=== PATIENT | male | born 1950 | race African-American/Black ===

== ENCOUNTER → 2017-07-17 | Outpatient (CLI) | payer OTHER ==
[~2017-07-17] MED LIST: CEFUROXIME250 MG PO; CEFUROXIME500 MG PO; DITROPAN XL10 MG PO; DITROPAN XL5 MG PO; FLOMAX0.4 MG PO; PYRIDIUM100 MG PO; TYLENOL WITH C1 EACH PO; ULTRAM50 MG PO
== END ==
LOC: US 10:23
PROVIDERS: ATTEND Urology
DX: N45.1 Epididymitis (principal)

== ENCOUNTER 2018-02-23 17:00 | Observation (INO) | payer OTHER ==
[~2018-02-23] VITALS: Ht 170.2 cm; Wt 95.3 kg
[2018-02-23] MEDS ORDERED: ASPIRIN 81 MG CHEW TAB PO ONE ×2 (17:15→20:00)
[2018-02-23 17:35] LABS: BASOPHILS % 0.5 % (0.0-1.0); EOSINOPHILS # (AUTO) 0.1 (0.0-0.4); HEMATOCRIT 41.6 % (38.2-49.6); LYMPHOCYTES # (AUTO) 1.7 (1.0-3.2); LYMPHOCYTES % 27.9 % (18.0-39.1); MEAN CORPUSCULAR HEMOGLOBIN 27.1 pg (28-32); MEAN CORPUSCULAR HGB CONC 31.3 g/dL (31-35); MEAN CORPUSCULAR VOLUME 86.8 fL (81-99); MONOCYTES # (AUTO) 0.6 (0.2-0.8); MONOCYTES % 9.6 % (4.4-11.3); NEUTROPHILS # (AUTO) 3.8 (2.1-6.9); NEUTROPHILS % 60.8 % (38.7-80.0); PLATELET COUNT 218 x10e3/uL (140-360); RED BLOOD COUNT 4.79 x10e6/uL (4.3-5.7)
[2018-02-23 18:01] LABS: ALBUMIN 3.8 g/dL (3.5-5.0); ALBUMIN/GLOBULIN RATIO 0.9 (0.8-2.0); ANION GAP 15.6 mmol/L (8-16); CALCIUM 8.7 mg/dL (8.4-10.2); CREATININE, SERUM 1.58 mg/dL (0.72-1.25); INR 1.01; POTASSIUM 4.6 mmol/L (3.5-5.1); PROTHROMBIN TIME 12.5 seconds (11.9-14.5)
[2018-02-23 18:02] LABS: PARTIAL THROMBOPLASTIN TIME 24.8 seconds (23.8-35.5)
[2018-02-23 18:08] LABS: BILIRUBIN,URINE NEGATIVE (NEGATIVE); CLARITY,URINE CLEAR (CLEAR); COLOR,URINE YELLOW (YELLOW); CREATINE KINASE MB 2.8 ng/mL (0-5.0); KETONES,URINE NEGATIVE (NEGATIVE); LEUKOCYTE ESTERASE ,URINE NEGATIVE (NEGATIVE); NITRITE,URINE NEGATIVE (NEGATIVE); PROTEIN,URINE DIPSTICK TRACE (NEGATIVE); URINE UROBILINOGEN 0.2 mg/dL (0.2 - 1)
[2018-02-23 18:21] LABS: EPITHELIAL CELLS,URINE MODERATE /LPF
[2018-02-23 18:22] LABS: RBC,URINE 0-5 /HPF (0-5)
--- NOTE | 2018-02-23 19:36 | Diagnostic Imaging Report ---
RIGHT ELBOW X-RAY - 3 VIEWS HISTORY: \S\ERMD ORDER \S\[id number] \S\1836 \S\Y COMPARISON: None available. FINDINGS: Bones: No acute displaced fracture. Osseous alignment is within normal limits. Joints: The joint spaces are well-maintained. Soft tissues: The soft tissues appear unremarkable. IMPRESSION: No acute radiographic abnormality. Signed by: Dr. Mariella Berry M.D. on 02/23/2018 7:22 PM
--- NOTE | 2018-02-23 19:36 | Diagnostic Imaging Report ---
History:Syncope, fall Comparison studies: None Technique: Axial images were obtained from the skull base to the vertex. Coronal and sagittal images reconstructed from the axial data. Dose modulation, iterative reconstruction, and/or weight based adjustment of the mA/kV was utilized to reduce the radiation dose to as low as reasonably achievable. Intravenous contrast: None Findings: Scalp/skull: No abnormalities. Extra-axial spaces: No masses. No fluid collections. Brain sulci: Mildly prominent but appropriate for age Ventricles: Normal in size and configuration adequate for age. No hydrocephalus. Parenchyma: No abnormal densities. No masses, hemorrhage, acute or chronic cortical vascular insults. Sellar/suprasellar region: No abnormalities. Craniocervical junction: Patent foramen magnum. No Chiari one malformation. Incidental findings: Subtle atherosclerotic calcifications in the carotid siphons . Impression: No acute abnormalities. Signed by: Dr. Loyd Araiza M.D. on 02/23/2018 6:40 PM
--- NOTE | 2018-02-23 19:36 | Diagnostic Imaging Report ---
EXAMINATION: CHEST SINGLE (PORTABLE) INDICATION: \S\ERMD ORDER \S\[id number] \S\1834 \S\Y COMPARISON: None FINDINGS: AP view TUBES and LINES: None. LUNGS: Lungs are well inflated. Incidental right upper lobe Azygous lobe. Lungs are clear. There is no evidence of pneumonia or pulmonary edema. PLEURA: No pleural effusion or pneumothorax. HEART AND MEDIASTINUM: The cardiac silhouette is within normal limits. Triangular-shaped faint opacity overlying the right hilar. BONES AND SOFT TISSUES: No acute osseous lesion. Soft tissues are unremarkable. UPPER ABDOMEN: No free air under the diaphragm. IMPRESSION: Indeterminate faint opacity overlying the right hilar. Recommend PA and lateral view for further evaluation. Signed by: Dr. Mariella Berry M.D. on 02/23/2018 7:22 PM
[2018-02-23] MEDS ORDERED: ASPIR 8181 MG PO (20:37)
[2018-02-23] MEDS ORDERED: BRILINTA90 MG PO (20:37)
--- NOTE | 2018-02-23 20:37 | Diagnostic Imaging Report ---
EXAMINATION: CHEST 2 VIEWS INDICATION: \S\ORDER PLACED BY \S\[id number] \S\2010 \S\Y COMPARISON: Chest radiograph 02/23/2018 FINDINGS: PA and lateral views TUBES and LINES: None. LUNGS: Lungs are well inflated. Lungs are clear. Incidental right upper lobe Azygous lobe, unchanged. There is no evidence of pneumonia or pulmonary edema. PLEURA: No pleural effusion or pneumothorax. HEART AND MEDIASTINUM: The cardiac silhouette is within normal limits. Prior right hilar opacity corresponds to a prominent right and main pulmonary arteries. BONES AND SOFT TISSUES: No acute osseous lesion. Soft tissues are unremarkable. UPPER ABDOMEN: No free air under the diaphragm. IMPRESSION: Prominent right and main pulmonary arteries corresponds to the abnormality seen on prior chest radiograph. No acute cardiopulmonary abnormalities. Signed by: Dr. Mariella Berry M.D. on 02/23/2018 8:33 PM
[2018-02-23] MEDS ORDERED: AVODART0.5 MG PO (20:38)
[2018-02-23] MEDS ORDERED: METOPROLOL TART25 MG PO (20:43)
[2018-02-23] MEDS ORDERED: ATORVASTATIN CA20 MG PO (20:43)
[2018-02-23] MEDS ORDERED: ACETAMINOPHEN/CODEINE 300MG - 30MG TAB PO PRN (23:15)
[2018-02-24] VITALS (10 sets, daily range): BP systolic 106–160; BP diastolic 66–89
[2018-02-24 03:49] LABS: CREATINE KINASE MB 2.7 ng/mL (0-5.0)
[2018-02-24 05:13] LABS: BASOPHILS % 0.3 % (0.0-1.0); EOSINOPHILS % 0.6 % (0.0-6.0); HEMATOCRIT 37.5 % (38.2-49.6); HEMOGLOBIN 11.8 g/dL (14.0-18.0); LYMPHOCYTES # (AUTO) 2.1 (1.0-3.2); LYMPHOCYTES % 32.7 % (18.0-39.1); MEAN CORPUSCULAR HEMOGLOBIN 27.3 pg (28-32); MEAN CORPUSCULAR HGB CONC 31.5 g/dL (31-35); MEAN CORPUSCULAR VOLUME 86.6 fL (81-99); MONOCYTES # (AUTO) 0.7 (0.2-0.8); NEUTROPHILS # (AUTO) 3.6 (2.1-6.9); NEUTROPHILS % 55.1 % (38.7-80.0); PLATELET COUNT 188 x10e3/uL (140-360); RED BLOOD COUNT 4.33 x10e6/uL (4.3-5.7); RED CELL DISTRIBUTION WIDTH 14.8 % (11.7-14.4)
[2018-02-24] MEDS ORDERED: ASPIRIN 325 MG TAB EC PO SCH (09:00)
[2018-02-24 09:50] LABS: CREATINE KINASE 379 IU/L (30-200)
--- NOTE | 2018-02-24 14:26 | Consultation ---
DATE OF CONSULTATION: February 24, 2018 CARDIOLOGY CONSULTATION REASON FOR CONSULTATION: Syncope. HISTORY OF PRESENT ILLNESS: Mr. Joy is a 67-year-old gentleman with past medical history of hypertension, hypercholesterolemia, coronary artery disease with prior history of myocardial infarction back in September of 2016, who had 2 stents placed at that time. He was brought back in later for another 2-stent placement which sounds to me like an interval revascularization during that hospitalization. This was all done at [facility], and records are unavailable. He reports during that presentation he presented with chest pressure, tightness, heaviness, typical angina symptoms, and had a syncopal episode and came to without any prodrome symptoms. He since that time has been doing relatively well. He reports compliance with is antiplatelet and blood-thinning medication. However, he has been known to forget to take his p.m. dose of Brilinta therapy. He was in his usual state of health and works in roadside assistance. He went over to a scene at around 2:30 p.m. yesterday and reports while he was looking up something in his phone he suddenly collapsed without any prodrome or warning and ended up hurting his right elbow. He came to on the floor and was largely back to normal as if unclear what had happened. He denies any loss of bowel or bladder habits. He denies any witnessed seizure-like spells. He came into this emergency room where he has been monitored on telemetry, which thus far revealed no significant arrhythmias, and also reports his report of normal serial enzymes. Cardiology was consulted for further evaluation. PAST MEDICAL HISTORY 1. BPH. 2. History of prior ureter stent placement for urinary stones. 3. History of ventral hernia repair. 4. Hypertension. 5. Hypercholesterolemia. 6. CAD with a history of myocardial infarction in September of 2016 and has had 2 heart catheterizations resulting in 4 stents total. FAMILY HISTORY: Mother and father are both . Denies any premature family history of coronary disease. Is . He has got 3 children. SOCIAL HISTORY: He is a lifelong nonsmoker, denies any alcohol or illicit drug use. ALLERGIES: NO KNOWN DRUG ALLERGIES. HOME MEDICATIONS: Include 1. Aspirin 81 mg daily. 2. Brilinta 90 mg b.i.d. 3. Atorvastatin 20 mg daily. 4. Metoprolol 25 mg b.i.d. 5. Flomax 0.4 mg b.i.d. REVIEW OF SYSTEMS GENERAL: Denies any fevers, chills or any weight changes. HEENT: No headaches, visual complaints, sore throat, stuffy nose. RESPIRATORY: Denies any pleuritic chest pain. Denies any exertional dyspnea. CARDIOVASCULAR: As per HPI. Denies any subjective palpitations. Again, this is his second episode of syncope. GI: Denies any bright red blood per rectum, melena, hematemesis. : Positive for urinary frequency. Denies any pyuria, hematuria. MUSCULOSKELETAL: Positive for right elbow pain and right thigh pain for his fall with bruising. HEMATOLOGY: Denies any anemia. ID: No known infectious issues. NEUROLOGIC: No history of prior stroke, TIA or seizures. Syncope as noted above. REMAINDER OF REVIEW OF SYSTEMS: Negative otherwise mentioned. PHYSICAL EXAMINATION VITAL SIGNS: Height of 67 inches, weight of 210 pounds. BMI is 32.9. Temperature of 97.5, pulse of 63, respiratory rate 18, blood pressure of 120/75, O2 sat 97% on room air. IN GENERAL: This is a well-nourished, well-developed gentleman who is currently in no apparent distress. HEENT: Normocephalic, atraumatic. Pupils are equally round and reactive to light. Extraocular movements are intact. Oropharynx is clear. NECK: No elevation of jugular venous pulsation. No carotid bruits. CARDIOVASCULAR: Regular in rate and rhythm. Normal S1 and S2. A soft 1/6 systolic murmur at the left lower sternal border. LUNGS: Largely clear to auscultation bilaterally with good air entry. ABDOMEN: Soft, nontender, nondistended. There is an old hernia scar. Normoactive bowel sounds. BACK: No costovertebral angle tenderness. EXTREMITIES: Warm with 2+ bilateral radial pulses, 1+ bilateral femoral pulses and 1+ pedal pulses. There is trace edema. NEUROLOGIC: Cranial nerves 2-12 are intact. A limited exam on the right upper extremity on account of his elbow abrasion but appears to be with preserved strength. No gait abnormalities. LABS: White count of 6.5, hemoglobin 11.8, hematocrit of 37.5, platelets of 188. Sodium 140, potassium of 4.6, chloride 106, bicarb 23, BUN 17, creatinine 1.58, glucose of 94, calcium of 8.7. AST 32, ALT 19, alk phos 91. Total protein of 8.1, albumin of 3.8. Troponin went from 0.005 to 0.006 to less than 0.01. INR is 1.01. UA shows 6-10 white cells, 0-5 red cells. CHEST X-RAY: Shows indeterminate faint opacity over the right hilar region. Subsequent chest x-ray reveals prominent right and main pulmonary arteries. BRAIN CT: Shows a subtle atherosclerotic calcification in the carotid siphons but no acute abnormalities. ELBOW X-RAY: Reveals no acute fracture. EKG: Reveals normal sinus rhythm, normal axis and no ST-T wave changes. DIAGNOSES 1. Syncope without any episode of prodrome concerning for perhaps cardiac syncope in nature. 2. Coronary artery disease with prior history of myocardial infarction with 4 prior stents placed. 3. Hypertension, essential. 4. Hypercholesterolemia. 5. Obesity. 6. Benign prostatic hypertrophy. 7. Known history of missed Brilinta doses. PLAN/RECOMMENDATIONS 1. From a cardiovascular standpoint, will maintain him for another day on telemetry. 2. Will check carotid duplex. 3. Will follow up on an echocardiogram. 4. Will proceed with ischemic risk stratification with a nuclear exercise treadmill stress test. 5. Will go ahead and consult EP to get their input. 6. Will continue to follow this patient with you. Thank you for this referral. Job#: [id number] LASHAWN
[2018-02-24] MEDS: TAMSULOSIN HCL 0.4 MG CAP PO SCH (18:08)
[2018-02-24] MEDS ORDERED: ATORVASTATIN 20 MG TAB PO SCH (21:00)
[2018-02-25] VITALS (7 sets, daily range): BP systolic 123–139; BP diastolic 71–98
--- NOTE | 2018-02-25 08:18 | Consultation ---
DATE OF CONSULTATION: 02/25/2018 REFERRING PHYSICIAN: Dr. Beatty REASON FOR CONSULT: Syncope. HISTORY OF PRESENT ILLNESS: This is a 67-year-old gentleman with a history of hypertension, history of coronary artery disease, status post myocardial infarction a few years ago. He underwent stent placement. The patient had been doing well except for an episode of syncope while he was out on the street, and states he blacked out and does not remember exactly what happened before and after. Then he recovered spontaneously. Apparently, he was out for a few seconds. He was admitted and has been feeling well since then. Hemodynamically stable in the hospital. He is denying chest pain. Denies palpitations. The patient states also he had a couple of episodes of dizziness about 1-2 months ago. Otherwise, no other syncope. REVIEW OF SYSTEMS CONSTITUTIONAL: Negative. CARDIOVASCULAR: As per HPI. RESPIRATORY: Negative. GASTROINTESTINAL: Negative. GENITOURINARY: Negative. MUSCULOSKELETAL: Negative. HEENT: Eyes negative. ENT negative. ALLERGY/IMMUNOLOGY: Negative. PSYCHIATRY: Negative. PAST MEDICAL HISTORY: Hypertension, coronary artery disease. SURGICAL HISTORY: Stent placement. SOCIAL HISTORY: Reports alcohol drinking about every 2-3 days. FAMILY HISTORY: No premature coronary artery disease. PHYSICAL EXAMINATION VITALS: Blood pressure 130/60, pulse 60, respirations 20, O2 sat 98%. GENERAL: In no acute distress. HEENT: Moist mucous membranes. CARDIOVASCULAR: Regular. RESPIRATORY: Clear. ABDOMEN: Soft and nontender. MUSCULOSKELETAL: Two plus distal pulses. NEUROLOGICAL: No focal deficit. Normal range of motion of his extremities. SKIN: No lesions. PSYCHIATRIC: Normal thought process. EKG is sinus rhythm. IMPRESSION 1. Syncope of unknown etiology. 2. History of coronary artery disease: Status post myocardial infarction and stent placement. 3. Normal ejection fraction with inferior wall hypokinesis. RECOMMENDATIONS: Discussed with the patient in detail. Explained to him that there was some concerning features of his syncope. The fact that he had a previous myocardial infarction would put him at increased risk, and ideally will perform an electrophysiology study for further risk stratification. We could consider a defibrillator if positive for inducible V-tach. Due to there is no electrophysiology capabilities in the hospital, also explained to the patient that the alternative option at this time is to perform a loop recorder so that we can assess for further arrhythmias. Will follow up in clinic for an outpatient electrophysiology study and possible defibrillator. The patient voices understanding. He wishes to think about it. In the meantime, he is undergoing ischemic workup by Dr. Beatty. Will await for results and finalize the plan. Thank you for letting us participate in Mr. Joy's healthcare. Job#: [id number] RAUDEL PEREIRA
[2018-02-25] MEDS: TAMSULOSIN HCL 0.4 MG CAP PO SCH (09:00)
[2018-02-25] MEDS ORDERED: ASPIRIN 81 MG CHEW TAB PO SCH (09:00)
[2018-02-25] MEDS ORDERED: METOPROLOL TARTRATE 25 MG TAB PO SCH (09:00)
[2018-02-25] MEDS ORDERED: LIDOCAINE 1% W/EPINEPHRINE 20 ML VIAL ONE ×2 (15:07→15:44)
[2018-02-25] MEDS ORDERED: PLAVIX75 MG PO (16:17)
[2018-02-25] MEDS ORDERED: MINOCYCLINE HCL50 MG PO (16:18)
[2018-02-25] MEDS ORDERED: ULTRAM50 MG PO (16:19)
--- NOTE | 2018-02-25 18:39 | Cardiology Report ---
DATE OF STUDY: February 25, 2018 EXERCISE NUCLEAR STRESS TEST PROTOCOL: Two-day stress protocol. TECHNICAL DETAILS: After risks, benefits, pros, and cons of nuclear stress test were explained, the patient agreed to proceed. The patient was brought on February 24, 2018, to the nuclear laboratory where he received an 11 millicurie dose of technitium-99 tetrofosmin intravenously, and then was taken to the SPECT camera for resting myocardial perfusion imaging. The following morning he was brought to the stress lab where a 12-lead EKG monitoring and blood pressure monitoring was obtained. He exercised on a Kingsley protocol for a total duration of 6 minutes and 31 seconds going from a resting heart rate of 69 beats per minute to a maximum of 144 beats per minute above our target heart rate of 131 beats per minute. Blood pressure went from a baseline of 92/78 to a maximum of 133/76, which is an appropriate blood pressure response. At approximately 5 minutes and 30 seconds with the exercise protocol and heart rate of 131 beats per minute, the patient received a stress injection of 31 millicurie dose of technitum-99 tetrofosmin intravenously. He exercised for an additional minute to recirculate the radioisotope. Test was terminated due to protocol completion. With exercise, he had no ischemic EKG changes or symptoms. He was then taken to the SPECT camera for stress myocardial perfusion imaging. FINDINGS 1. Resting myocardial perfusion imaging reveals mild decreased uptake in the inferobasal wall. 2. Stress myocardial perfusion imaging reveals same decreased uptake in the inferobasal wall. This largely appears fixed. 3. The following gaited measurements were obtained: End-diastolic volume 73 mm. Current systolic volume is 31 mm. Calculated left ventricular ejection fraction is 57% with some slight inferobasal hypokinesis. CONCLUSION 1. Exercise treadmill stress test portion of this exam was negative for any ischemic electrocardiogram changes or symptoms. 2. Myocardial perfusion imaging portion of the exam reveals a small fixed inferobasal defect compatible with his history of old myocardial infarction. There is no ischemia noted on this study. 3. Normal left ventricular function with ejection fraction calculated to be 57%. 4. Finding of the stress test explained to the patient, including limitations. 5. Overall, based on his presentation symptoms, will defer management to electrophysiology for consideration of loop recorder and further care. Job#: [id number] RI
--- NOTE | 2018-02-25 22:30 | Operative Report ---
DATE OF PROCEDURE: February 25, 2018 PREPROCEDURE DIAGNOSIS: Syncope. POSTPROCEDURE DIAGNOSIS: Syncope. ATTENDING PHYSICIAN: Dr. Miguel Ashley ESTIMATED BLOOD LOSS: Less than 5 mL. ANESTHESIA: Local. PROCEDURE PERFORMED: Implantation of a loop recorder. DESCRIPTION OF PROCEDURE: After informed consent was obtained, patient was brought to the electrophysiology laboratory in a fasting, nonsedated state. Area over his chest was prepped and draped in the usual sterile fashion. Local anesthesia was given using 1% lidocaine. A 1-cm skin incision was made in the fourth intercostal space with left parasternal area. The loop recorder was implanted using the implantation kit. Incision was closed using Vicryl and Dermabond. Patient tolerated the procedure well. Procedure was complete. IMPRESSION: Successful implantation of a loop recorder. PLAN: 1. Routine postoperative monitoring in telemetry bed. 2. Follow up in 2 weeks. Job#: [id number] DR PEREIRA
== END 2018-02-25 16:39 | disposition home or self-care (01) ==
LOC: ER 17:00 → ERHOLD 20:11 → IMCU 22:52
PROVIDERS: ADMIT Internal Medicine; ATTEND Internal Medicine
DX: R55 Syncope and collapse (principal); I25.10 Atherosclerotic heart disease of native coronary artery without angina pectoris; I12.9 Hypertensive chronic kidney disease with stage 1 through stage 4 chronic kidney disease, or unspecified chronic kidney disease; N18.3 Chronic kidney disease, stage 3 (moderate); M62.82 Rhabdomyolysis; I25.2 Old myocardial infarction; E78.5 Hyperlipidemia, unspecified; Z87.442 Personal history of urinary calculi; Z95.5 Presence of coronary angioplasty implant and graft; N40.0 Benign prostatic hyperplasia without lower urinary tract symptoms; E78.00 Pure hypercholesterolemia, unspecified; E66.9 Obesity, unspecified
CPT/HCPCS: 33282; 36415 ×2; 70450; 71045; 71046; 73080; 78452; 80053; 81001; 82550 ×2; 82553 ×2; 84484 ×2; 85025 ×2; 85610; 85730; 87086; 93005; 93017; 93306; 93880; 97139; 99284; A9502; C1764; G0378 ×3